=== PATIENT | male | born 1980 | race Two or more races ===

== ENCOUNTER 2017-09-30 08:57 | Emergency (ER) | payer OTHER ==
[2017-09-30 08:58] VITALS: BMI 26.4
[2017-09-30 09:08] VITALS: RESP 18; TEMP 98.7; O2SAT 98
[2017-09-30] MEDS ORDERED: Sodium Chloride 0.9% 1,000 ML IV STA (09:14)
[2017-09-30] MEDS ORDERED: DiphenhydrAMINE 50 mg/ml Inj IVP STA (09:14)
[2017-09-30 11:12] VITALS: BP 124/81; PULSE 66
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
== END 2017-09-30 12:16 | disposition home or self-care (01) ==
LOC: ED 08:57
DX: T78.49XA Other allergy, initial encounter (principal); X58.XXXA Exposure to other specified factors, initial encounter
CPT/HCPCS: 96374; 96375; 99285; J1100; J1200; J7040